=== PATIENT | female | born 1975 | race Caucasian/White ===

== ENCOUNTER 2023-08-31 20:26 | Emergency (ER) | payer OTHER ==
[2023-08-31] MEDS: Albuterol 0.083% 2.5 MG/3 ML Neb Soln NEB ONE (20:54)
[2023-08-31] MEDS: methylPREDNISolone Sodium Succinate 125 MG/2 ML SDV IVPUSH STA (20:58)
== END 2023-08-31 21:30 | disposition home or self-care (01) ==
LOC: CC.ED 20:26
DX: J04.0 Acute laryngitis (principal); I10 Essential (primary) hypertension
CPT/HCPCS: 94640; 96374; 99284; 99284-25; J2930; J7613-GY